=== PATIENT | male | born 1990 | race Caucasian/White ===

== ENCOUNTER 2021-11-14 03:59 | Emergency (ER) | payer BC, SELFPAY ==
[2021-11-14 04:24] VITALS: BP 144/87; PULSE 93; RESP 18; TEMP 36.6; O2SAT 97; BMI 25.7
--- NOTE | 2021-11-14 04:40 | PC.NURSE ---
pt not in waiting room pt seen walking out to the parking lot with a steady gait.
--- NOTE | 2021-11-14 05:16 | PC.NURSE ---
pt still has not returned to the ed once he walked out of the ed.
== END 2021-11-14 04:41 | disposition left against medical advice (07) ==
PROVIDERS: Emergency Provider Emergency Medicine
DX: M25.531 Pain in right wrist (principal)
CPT/HCPCS: 99281